=== PATIENT | male | born 1955 | race Caucasian/White ===

== ENCOUNTER → 2019-05-13 13:45 | Outpatient (BNVA) | payer MEDICAID, SELFPAY | PROVIDERS: Visit Provider Nurse Practitioner Psychiatric/Mental Health | DX: F25.1 Schizoaffective disorder, depressive type (principal); F41.1 Generalized anxiety disorder; F10.21 Alcohol dependence, in remission; F01.50 Vascular dementia, unspecified severity, without behavioral disturbance, psychotic disturbance, mood disturbance, and anxiety; F17.210 Nicotine dependence, cigarettes, uncomplicated | CPT/HCPCS: 99214; 99215 ==

== ENCOUNTER → 2019-05-17 14:41 | Outpatient (BNVA) | payer MEDICAID, SELFPAY | PROVIDERS: Visit Provider Counselor Professional | DX: F43.12 Post-traumatic stress disorder, chronic (principal); F17.210 Nicotine dependence, cigarettes, uncomplicated; F02.80 Dementia in other diseases classified elsewhere, unspecified severity, without behavioral disturbance, psychotic disturbance, mood disturbance, and anxiety; F10.21 Alcohol dependence, in remission | CPT/HCPCS: 90834 ==

== ENCOUNTER → 2019-05-24 13:12 | Outpatient (BNVA) | payer MEDICAID, SELFPAY | PROVIDERS: Visit Provider Nurse Practitioner Psychiatric/Mental Health | DX: F25.1 Schizoaffective disorder, depressive type (principal); F41.1 Generalized anxiety disorder; F43.12 Post-traumatic stress disorder, chronic; F10.21 Alcohol dependence, in remission; F17.210 Nicotine dependence, cigarettes, uncomplicated; F02.80 Dementia in other diseases classified elsewhere, unspecified severity, without behavioral disturbance, psychotic disturbance, mood disturbance, and anxiety; G30.9 Alzheimer's disease, unspecified | CPT/HCPCS: 99214 ==

== ENCOUNTER → 2019-05-30 08:46 | Outpatient (BNVA) | payer MEDICAID, SELFPAY | PROVIDERS: Visit Provider Counselor Professional | DX: F43.12 Post-traumatic stress disorder, chronic (principal); F02.80 Dementia in other diseases classified elsewhere, unspecified severity, without behavioral disturbance, psychotic disturbance, mood disturbance, and anxiety; F10.21 Alcohol dependence, in remission | CPT/HCPCS: 90834 ==

== ENCOUNTER → 2019-06-09 15:08 | Outpatient (BNVA) | payer MEDICAID, SELFPAY | PROVIDERS: PCP Nurse Practitioner Family; Visit Provider Nurse Practitioner Psychiatric/Mental Health | DX: F25.1 Schizoaffective disorder, depressive type (principal); F41.1 Generalized anxiety disorder; F01.50 Vascular dementia, unspecified severity, without behavioral disturbance, psychotic disturbance, mood disturbance, and anxiety; F10.21 Alcohol dependence, in remission; F43.12 Post-traumatic stress disorder, chronic; F17.210 Nicotine dependence, cigarettes, uncomplicated | CPT/HCPCS: 99214 ==

== ENCOUNTER → 2019-06-13 12:45 | Outpatient (BNVA) | payer MEDICAID, SELFPAY | PROVIDERS: PCP Nurse Practitioner Family; Visit Provider Counselor Professional | DX: F43.12 Post-traumatic stress disorder, chronic (principal); F17.210 Nicotine dependence, cigarettes, uncomplicated; F10.21 Alcohol dependence, in remission; F41.1 Generalized anxiety disorder; F25.1 Schizoaffective disorder, depressive type | CPT/HCPCS: 90834 ==

== ENCOUNTER → 2019-07-07 10:18 | Outpatient (BNVA) | payer MEDICAID, SELFPAY | PROVIDERS: PCP Nurse Practitioner Family; Visit Provider Nurse Practitioner Psychiatric/Mental Health | DX: F25.1 Schizoaffective disorder, depressive type (principal); F41.1 Generalized anxiety disorder; F01.50 Vascular dementia, unspecified severity, without behavioral disturbance, psychotic disturbance, mood disturbance, and anxiety; F10.21 Alcohol dependence, in remission; F43.12 Post-traumatic stress disorder, chronic; F17.210 Nicotine dependence, cigarettes, uncomplicated | CPT/HCPCS: 99214 ==

== ENCOUNTER → 2019-07-15 11:00 | Outpatient (BNVA) | payer MEDICAID, SELFPAY | PROVIDERS: PCP Nurse Practitioner Family; Visit Provider Counselor Professional | DX: F43.12 Post-traumatic stress disorder, chronic (principal); F17.210 Nicotine dependence, cigarettes, uncomplicated; F10.21 Alcohol dependence, in remission; F41.1 Generalized anxiety disorder; F25.1 Schizoaffective disorder, depressive type | CPT/HCPCS: 90834 ==

== ENCOUNTER → 2019-08-18 07:36 | Outpatient (BNVA) | payer MEDICAID, SELFPAY | PROVIDERS: PCP Nurse Practitioner Family; Visit Provider Nurse Practitioner Psychiatric/Mental Health | DX: F25.1 Schizoaffective disorder, depressive type (principal); F41.1 Generalized anxiety disorder; F01.50 Vascular dementia, unspecified severity, without behavioral disturbance, psychotic disturbance, mood disturbance, and anxiety; F10.21 Alcohol dependence, in remission; F43.12 Post-traumatic stress disorder, chronic; F17.210 Nicotine dependence, cigarettes, uncomplicated | CPT/HCPCS: 99214 ==

== ENCOUNTER → 2019-09-15 07:29 | Outpatient (BNVA) | payer MEDICAID, SELFPAY | PROVIDERS: PCP Nurse Practitioner Family; Visit Provider Nurse Practitioner Psychiatric/Mental Health | DX: F25.1 Schizoaffective disorder, depressive type (principal); F41.1 Generalized anxiety disorder; F01.50 Vascular dementia, unspecified severity, without behavioral disturbance, psychotic disturbance, mood disturbance, and anxiety; F10.21 Alcohol dependence, in remission; F43.12 Post-traumatic stress disorder, chronic; F17.210 Nicotine dependence, cigarettes, uncomplicated | CPT/HCPCS: 99214 ==

== ENCOUNTER → 2019-10-12 07:31 | Outpatient (BNVA) | payer MEDICAID, SELFPAY | PROVIDERS: PCP Nurse Practitioner Family; Visit Provider Nurse Practitioner Psychiatric/Mental Health | DX: F25.1 Schizoaffective disorder, depressive type (principal); F41.1 Generalized anxiety disorder; F01.50 Vascular dementia, unspecified severity, without behavioral disturbance, psychotic disturbance, mood disturbance, and anxiety; F10.21 Alcohol dependence, in remission; F43.12 Post-traumatic stress disorder, chronic; F17.210 Nicotine dependence, cigarettes, uncomplicated | CPT/HCPCS: 99214 ==

== ENCOUNTER → 2019-11-01 14:47 | Outpatient (BNVA) | payer MEDICAID, SELFPAY | PROVIDERS: PCP Nurse Practitioner Family; Visit Provider Counselor Mental Health | DX: F01.50 Vascular dementia, unspecified severity, without behavioral disturbance, psychotic disturbance, mood disturbance, and anxiety (principal); F41.1 Generalized anxiety disorder; F25.1 Schizoaffective disorder, depressive type | CPT/HCPCS: 90834 ==

== ENCOUNTER → 2019-11-09 08:36 | Outpatient (BNVA) | payer MEDICAID, SELFPAY | PROVIDERS: PCP Nurse Practitioner Family; Visit Provider Counselor Mental Health | DX: F43.12 Post-traumatic stress disorder, chronic (principal); F41.1 Generalized anxiety disorder; F25.1 Schizoaffective disorder, depressive type | CPT/HCPCS: 90832 ==

== ENCOUNTER → 2019-11-10 07:52 | Outpatient (BNVA) | payer MEDICAID, SELFPAY | PROVIDERS: PCP Nurse Practitioner Family; Visit Provider Nurse Practitioner Psychiatric/Mental Health | DX: F25.1 Schizoaffective disorder, depressive type (principal); F41.1 Generalized anxiety disorder; F01.50 Vascular dementia, unspecified severity, without behavioral disturbance, psychotic disturbance, mood disturbance, and anxiety; F10.21 Alcohol dependence, in remission; F43.12 Post-traumatic stress disorder, chronic; F17.210 Nicotine dependence, cigarettes, uncomplicated | CPT/HCPCS: 99214 ==

== ENCOUNTER → 2019-12-19 10:24 | Outpatient (BNVA) | payer MEDICAID, SELFPAY | PROVIDERS: PCP Nurse Practitioner Family; Visit Provider Counselor Mental Health | DX: F43.12 Post-traumatic stress disorder, chronic (principal); F41.1 Generalized anxiety disorder; F25.1 Schizoaffective disorder, depressive type | CPT/HCPCS: 90832 ==

== ENCOUNTER → 2020-01-03 09:51 | Outpatient (BNVA) | payer MEDICAID, SELFPAY | PROVIDERS: PCP Nurse Practitioner Family; Visit Provider Counselor Mental Health | DX: F41.1 Generalized anxiety disorder (principal); F25.1 Schizoaffective disorder, depressive type; F10.21 Alcohol dependence, in remission; F01.50 Vascular dementia, unspecified severity, without behavioral disturbance, psychotic disturbance, mood disturbance, and anxiety; F43.12 Post-traumatic stress disorder, chronic | CPT/HCPCS: 90832 ==

== ENCOUNTER → 2020-01-10 08:39 | Outpatient (BNVA) | payer MEDICAID, SELFPAY | PROVIDERS: PCP Nurse Practitioner Family; Visit Provider Nurse Practitioner Psychiatric/Mental Health | DX: F43.12 Post-traumatic stress disorder, chronic (principal); F01.50 Vascular dementia, unspecified severity, without behavioral disturbance, psychotic disturbance, mood disturbance, and anxiety; F41.1 Generalized anxiety disorder; F17.210 Nicotine dependence, cigarettes, uncomplicated; F10.21 Alcohol dependence, in remission; F25.1 Schizoaffective disorder, depressive type | CPT/HCPCS: 99214 ==

== ENCOUNTER → 2020-01-12 12:50 | Outpatient (BNVA) | payer MEDICAID, SELFPAY | PROVIDERS: PCP Nurse Practitioner Family; Visit Provider Counselor Mental Health | DX: F41.1 Generalized anxiety disorder (principal); F25.1 Schizoaffective disorder, depressive type; F43.11 Post-traumatic stress disorder, acute | CPT/HCPCS: 90832; 80053; 80061; 83036; 85025 ==

== ENCOUNTER → 2020-02-07 07:53 | Outpatient (BNVA) | payer MEDICARE, MEDICAID, SELFPAY | PROVIDERS: PCP Nurse Practitioner Family; Visit Provider Nurse Practitioner Psychiatric/Mental Health | DX: F41.1 Generalized anxiety disorder (principal); F25.1 Schizoaffective disorder, depressive type; F17.210 Nicotine dependence, cigarettes, uncomplicated; G47.00 Insomnia, unspecified; F01.50 Vascular dementia, unspecified severity, without behavioral disturbance, psychotic disturbance, mood disturbance, and anxiety; F43.12 Post-traumatic stress disorder, chronic; F10.21 Alcohol dependence, in remission | CPT/HCPCS: 99214 ==

== ENCOUNTER 2020-02-16 10:48 | Outpatient (CLI) | payer MEDICARE, MEDICAID, SELFPAY ==
--- NOTE | 2020-02-16 10:58 | CT_ITS ---
WS: [id number] LDCT LUNG CANCER SCREENING TECHNIQUE: Noncontrast CT of the chest with coronal and sagittal reformatted images. CLINICAL INFORMATION: HX OF TOBACCO USE/NICOTINE DEPENDENCE COMPARISON: CT chest 4 2017 DLP: 57.73 mGy.cm DIvol: 1.[address] scans at [facility] use at least one of these dose optimization techniques: automat ed exposure control; mA and/or kV adjustment per patient size (includes targeted exams where dose is matched to clinical indication); or iterative reconstruction. FINDINGS: ESOPHAGEAL HIATAL HERNIA WITH DILATED THORACIC ESOPHAGUS WITH AIR-FLUID LEVELS. SPASM OR STRICTURE AT THE GE JUNCTION. RECOMMEND FURTHER EVALUATION WITH ENDOSCOPY. 4 mm noncalcified nodule right middle lobe laterally. No acute pulmonary infiltrates. No focal pneumo kulwant. No mediastinal or hilar lymphadenopathy. No axillary lymphadenopathy. Adrenal glands are normal. CT/CT lung screening [id number] IMPRESSION: LUNG-RADS: 2-Benign Appearance or Behavior FOLLOW UP: 12 Month: Continue annual screening with LDCT
== END 2020-02-16 10:49 | disposition home or self-care (01) ==
DX: Z12.2 Encounter for screening for malignant neoplasm of respiratory organs (principal); F17.210 Nicotine dependence, cigarettes, uncomplicated; R91.1 Solitary pulmonary nodule
CPT/HCPCS: G0297

== ENCOUNTER → 2020-02-17 14:04 | Outpatient (BNVA) | payer MEDICARE, MEDICAID, SELFPAY | PROVIDERS: Visit Provider Surgery | DX: Z11.59 Encounter for screening for other viral diseases (principal); K22.0 Achalasia of cardia | CPT/HCPCS: 87635 ==

== ENCOUNTER 2020-02-20 08:22 | Outpatient (CLI) | payer MEDICARE, MEDICAID, SELFPAY ==
--- NOTE | 2020-02-20 08:30 | FL_ITS ---
WS: [id number] Limited upper GI examination, Gastrografin. HISTORY: Dysphagia. Fluoroscopy time: 1.5 minutes. Only 2 small swallows of Gastrografin were given for this examination. There is marked dilatation of the esophagus with food products and debris within the entire esophagus. There is marked narrowing of the distal esophagus. Probably due to marked achalasia. After 10 minutes a small amount of Gastrogra fin is noted extending through the GE junction into the stomach. There still majority of the Gastrogr afin is within the stomach. There are few tertiary contractions. FL/FL upper GI gastrografin [id number] IMPRESSION: Severe high grade stenosis which is likely achalasia involving the distal esoph dora. After 10 minutes there is very minimal Gastrografin distending the stomac h. Majority of the Gastrografin is still within the esophagus. Similar but prog ression of high-grade stenosis at the GE junction since 07/24/2017.
[2020-02-20] MEDS: diatrizoate meglumine 120 mL Sol PO (09:18)
== END 2020-02-20 08:23 | disposition home or self-care (01) ==
LOC: RAD 08:28
PROVIDERS: PCP Family Medicine; Visit Provider Surgery
DX: R13.10 Dysphagia, unspecified (principal); K22.2 Esophageal obstruction
CPT/HCPCS: 74240

== ENCOUNTER 2020-02-21 08:49 | Inpatient (IN) | payer MEDICARE, MEDICAID, SELFPAY ==
[2020-02-20 13:00] VITALS: BMI 27.1
[2020-02-21] VITALS (20 sets, daily range): BP systolic 136–187; BP diastolic 63–95; PULSE 73–93; RESP 14–22; TEMP 36.3–36.9; O2SAT 90–98
--- NOTE | 2020-02-21 06:28 | XR_ITS ---
WS: [id number] Exam: XR chest 1V portable [id number] Date/Time of Exam: 02/21/2020 6:28 AM Reason For Exam: post upper gi study to check residual contrast in the esopha Findings: Comparison 07/23/2017. Lungs are clear and fully inflated. Normal cardiomediastinal structures and bony elements. No pleural effusions. Several old left rib fractures. No residual radiographic contrast identified in the regio n of the esophagus. XR/XR chest 1V portable [id number] IMPRESSION: 1. No acute cardiopulmonary finding.
--- NOTE | 2020-02-21 08:05 | P.ANESASSM_ITS ---
Pre-Anesthetic Assessment Pre-Anesthetic Assessment: Height/Weight: Height 1.83 m Weight 90.718 kg Temp Pulse Resp BP Pulse Ox 97.3 F L 83 18 136/77 95 02/21/20 07:46 02/21/20 07:46 02/21/20 07:46 02/21/20 07:46 02/21/20 07:46 Preop Diagnosis: Achalasia of the cardia Proposed Procedure: Operation Date: 02/21/20 07:00 Proposed Procedures p Laparoscopic Esophageal Heller Myotomy w/ AGAPITO Fundoplication 76535 25523 K22.0(Not Applicable) - Aneesh Renteria MD s EGD(Not Applicable) - Aneesh Renteria MD s Possible Gastric Tube Insertion(Not Applicable) - Aneesh Renteria MD Operation Date: 02/21/20 08:50 Proposed Procedures p Laparoscopic Esophageal Heller Myotomy w/ AGAPITO Fundoplication 50712 93835 K22.0(Not Applicable) - Aneesh Renteria MD s Possible Gastric Tube Insertion(Not Applicable) - Aneesh Renteria MD s EGD 97396(Not Applicable) - Aneesh Renteria MD Familial anesthetic complications: None Was Beta Malik taken within 24 hours: N/A Last intake: Intake Last Liquid Date 02/20/20 Last Liquid Time 18:00 Last Solid Date 02/20/20 Last Solid Time 18:00 Social: Social History: Tobacco and No alcohol Comment: previous ETOH Exam: Pre-Anes Outpt Exam: alert, oriented x 3, clear to auscultation bilaterally and regular rate & rhythm Airway: Cervical ROM: WNL MP: 2 Dentition: Other (multiple missing teeth) GI: Comments: Patient states he vomited yesterday after his gastrogaffin study and does not feel anything in his esophagus currently Neuropsych: Neuropsych: Dementia Comments: alzheimer's and shizoaffective d/o Anesthetic Plan: ASA status: 2 Other: RSI for aspiration risk Risk of > 500 ml blood loss (7ml/kg in children): No PFSH Anesthesia PFSH: Medical History (Updated 02/07/20 @ 14:46 by Krystal Vazquez, [facility]) Alcohol use disorder, moderate, in early remission Chronic post-traumatic stress disorder Cigarette nicotine dependence Generalized anxiety disorder Insomnia Major neurocognitive disorder due to probable Alzheimer's disease, without behavioral disturbance Schizoaffective disorder, depressive type without good prognostic features Surgical History History of esophagogastroduodenoscopy (EGD) (~2018) BOTOX INJECTION Family History Denies family history of Anesthesia complication Bleeding disorder Social History Smoking and tobacco status: current every day smoker cigarettes Packs smoked per day: 1 Years cigarettes smoked: 50 Quit status (tobacco): considering quitting Second hand smoke exposure: No Data Anesthesia Cardiac Studies: No Data to Display
[2020-02-21] MEDS: heparin 5,000 unit/mL INJ 1 mL 3000 UNIT SUBCUT (08:37)
[2020-02-21] MEDS: ondansetron 2 mg/ML SDV 2 mL 4 MG IVP (08:37)
[2020-02-21] MEDS: scopolamine 1.5 Patch 1 PATCH TRANSDERMA (08:38)
[2020-02-21] MEDS: pantoprazole 40 mg SDV IVP (08:39)
[2020-02-21] MEDS: sodium chloride 0.9% 1,000 ML 30 ML IV (08:39)
--- NOTE | 2020-02-21 09:02 | P.HP_ITS ---
Same Day Surgery H&P Indication for Procedure/HPI DATE OF PROCEDURE: February 21, 2020 CHIEF COMPLAINT/INDICATIONFOR SURGICAL PROCEDURE: Difficulty in swallowing PREOP DIAGNOSIS: Achalasia of the cardia PLANNED PROCEDRUE: Operation Date: 02/21/20 07:00 Proposed Procedures p Laparoscopic Esophageal Heller Myotomy w/ ZACHARIAH Fundoplication 87386 54324 K22. 0(Not Applicable) - Aneesh Renteria MD s EGD(Not Applicable) - Aneesh Renteria MD s Possible Gastric Tube Insertion(Not Applicable) - Aneesh Renteria MD Operation Date: 02/21/20 08:50 Proposed Procedures p Laparoscopic Esophageal Heller Myotomy w/ ZACHARIAH Fundoplication 25688 77503 K22.0(Not Applicable) - Aneesh Renteria MD s Possible Gastric Tube Insertion(Not Applicable) - Aneesh Renteria MD s EGD 73190(Not Applicable) - Aneesh Renteria MD This is a pleasant 64 years old gentleman had chronic difficulty in swallowing and was proved to have achalasia of the cardia after different studies including EGD, manometry and upper GI studies, patient was counseled on different occasions about different therapeutic options, patient did have 1 injection of botulinum toxin at outside facility more than a year ago and he had relief but he continued to have symptoms and he finally decided to proceed with surgery. Patient comes today and an upper GI study was done yesterday to rule out any potential distal esophageal growth or changes in comparison to previous studies and that showed: Only 2 small swallows of Gastrografin were given for this examination. There is marked dilatation of the esophagus with food products and debris within the entire esophagus. There is marked narrowing of the distal esophagus. Probably due to marked achalasia. After 10 minutes a small amount of Gastrografin is noted extending through the GE junction into the stomach. There still majority of the Gastrografin is within the stomach. There are few tertiary contractions. FL/FL upper GI gastrografin [id number] IMPRESSION: Severe high grade stenosis which is likely achalasia involving the distal esophagus. After 10 minutes there is very minimal Gastrografin distending the stomach. Majority of the Gastrografin is still within the esophagus. Similar but progression of high-grade stenosis at the GE junction since 07/24/2017. ROS All systems have been reviewed negative except as per the above or per problem list Medications/Allergies* Home Medications Medication Instructions Recorded Confirmed Type multivitamin 1 tab PO QAM 05/13/19 02/20/20 History Allergies/Adverse Reactions Allergy/AdvReac Type Severity Reaction Status Date / Time No Known Allergies Allergy Verified 02/21/20 09:04 Current Medications: Generic Name Dose Route Start Last Admin Trade Name Freq PRN Reason Stop Dose Admin Sodium Chloride 1,000 mls @ 30 mls/hr 02/21/20 07:45 02/21/20 08:39 Sodium Chloride 0.9% IV 02/22/20 07:44 30 mls/hr .Q24H JAGDISH Administration Ondansetron HCl 4 mg 02/21/20 07:33 02/21/20 08:37 Zofran IVP 4 mg Q5M PRN Administration NAUSEA AND VOMITING Pertinent History/Comorbid Conditions* Medical History (Updated 02/07/20 @ 14:46 by Krystal Vazqeuz, [facility]) Alcohol use disorder, moderate, in early remission Chronic post-traumatic stress disorder Cigarette nicotine dependence Generalized anxiety disorder Insomnia Major neurocognitive disorder due to probable Alzheimer's disease, without behavioral disturbance Schizoaffective disorder, depressive type without good prognostic features Surgical History (Updated 06/06/19 @ 10:18 by Aneesh Renteria MD) History of esophagogastroduodenoscopy (EGD) (~2018) BOTOX INJECTION Family History (Updated 06/06/19 @ 09:30 by Love Carmona RN) Denies family history of Anesthesia complication Bleeding disorder Social History Smoking and tobacco status: current every day smoker cigarettes Packs smoked per day: 1 Years cigarettes smoked: 50 Quit status (tobacco): considering quitting Second hand smoke exposure: No Pertinent Exam Findings alert, oriented x 3, clear to auscultation bilaterally, regular rate & rhythm and procedure specific exam findings (Abdominal examination nontender nondistended soft) Recommendations Surgery/Procedure today (Laparoscopic Heller myotomy with Zachariah fundoplication possible open with possible gastrostomy tube placement) Coding Level of Care Code Acute Director Of Mechanical Engineering for Sanjeev Pena
--- NOTE | 2020-02-21 11:50 | SUR.OPER ---
1025 - attempted to notify of surgery start. unable to reach her on her cell phone at this time.
--- NOTE | 2020-02-21 11:52 | SUR.OPER ---
Amrita updated on surgery progress and pt status via her cell phone
--- NOTE | 2020-02-21 13:34 | SUR.OPER ---
Family Notified Of Patient's Status Via Phone.
--- NOTE | 2020-02-21 13:51 | P.OP_ITS ---
Operative Report Date of procedure: February 21, 2020 Pre-op Diagnosis: Achalasia of the cardia Post-op Findings: Scarred tissues distal part of the esophagus and proximal stomach Procedure Done: Laparoscopic Heller myotomy and Zachariah fundoplication with intraoperative esophagogastroscopy Implants: 15 Burkinan round Hank drain Surgeon: Aneesh Renteria Cardiograph Operator: Surgical Mayra Hurley Jesse and Britney Anesthesia: General Estimated blood loss (mL): 20 IV fluids (mL): 1,700 Urine output (mL): 550 Condition: stable Disposition: observation Brief History: This is a pleasant 64 years old gentleman with history of achalasia,patient had previous work-ups and showed his potential candidacy for laparoscopic Heller myotomy with Zachariah fundoplication. I did discuss in length and in depth with the patient and his spouse about different options for treatment and he decided to proceed with surgery. U nderstanding the potential indications, risks, benefits and alternatives. Rationale was discussed with the patient and all questions and concerns have been addressed to patient's satisfaction as well as his spouse. Informed consent per chart Procedure: Patient was identified in holding area,appropriate pharmacologic DVT prophylaxis was given, patient was then taken to the operating room where the patient was placed in supine position, intubated by anesthesia prophylactic antibiotics were given per protocol,Time-out was done verifying the patient's name/date of /planned procedure and destination after the procedure, all were in agreement. SCDs confirmed to be functioning, preoperative antibiotics administered per protocol, and beta steven protocol was confirmed patient was placed in a low lithotomy position, both arms were tucked to the sides.and all pressure points were padded, a Macario catheter was placed by the circulating nurse that revealed clear urine. The patient was appropriately secured to the operating table, and I asked anesthesia to swing the table [id number] in different positions that the patient is appropriately secured to the OR table which it was the case. Prep and drape of the abdomen was done under the usual sterile technique, started by 1.2 cm transverse incision with 15 blade knife, 15 cm below the xiphoid and 3 cm to the left of the midline, followed by that a 12 mm optical trocar was used under direct vision and placed in the peritoneal cavity without difficulty. The peritoneal cavity was insufflated with CO2 gas up to 15 mmHg, followed by that an angled scope 10 mm was inserted in the abdominal cavity, the abdomen was surveyed there was no evidence of blood or fluid or other evidence of intra-abdominal injury Following that two 5 mm ports were placed one at 10 cm from the xiphoid process under the left subcostal region and the other one was placed at the left flank A 12 mm port was placed in the subxiphoid region towards the right upper subcostal region. At this point to insert an additional 5 mm trocar 15 centimeter to the right of the xiphoid process at the upper abdomen, and liver retractor was placed under direct visualization to lift the liver up and helped greatly for appropriate visualization of the hiatus. Patient was placed in steep reverse T Munoz and I st ood between the patient's legs. The hepatogastric ligament was left intact.I started by freeing esophageal fat pad, harmonic scalpel was used for dissection, dissection of the phrenoesophageal ligament was limited to the space anterior to the esophagus.The mediastinum was entered bluntly by gentle medial traction upon the lateral aspects of the hiatus anterior to the esophagus. The anterior vagus nerve was identified, freed from the surface of the esophagus and thus mobilized out of harms way.Approximately 6 cm of the esophagus was easily visualized. At this point I decided to take down the short gastrics to facilitate with the future The anterior fibers of the esophagus were then scored in a longitudinal fashion with the harmonic scalpel/hook cautery are used sparingly to avoid inadvertent mucosal perforation.Noticed to have excessive scarring at the distal esophagus and proximal stomach and the myotomy performed, exposing intact submucosa. Dissection was carried out approximately 2 cm distal to the gastroesophageal junction. There was 2 inadvertent proximal gastrotomies that were repaired immediate using 2-0 silk [id number] sutures. At that point I did scrub out and the EGD was inserted under direct visualization suction irrigation was obtained and the mucosa appeared to be intact and there was no sign of perforation with insufflation of gas in the form of CO2. The lower esophageal sphincter opened easily upon gentle insufflation, confirming an adequate myotomy.There was no evidence of leak.The endoscope was withdrawn. At that point I scrubbed back in and the following sutures were applied: A 2-0 Ethibond intracorporeal sutures are placed.On the left side, a suture is placed between the fundus, the apex of the left kathryn, and the superior cut edge of the muscularis to the left of the esophagus. A second suture is placed 2 cm inferior caudad to the first suture approximating the left side of the fundus and the left side of the myotomy. The third suture is placed between the fundus and the superior cephalad cut edge of the muscularis to the right of the esophagus and the apex of the right kathryn. Finally the fourth suture is placed between the right side of the fundus and the inferior caudad right side of the myotomy to complete an anterior partial fundoplication and additional suture was added between the fundus of the stomach and the right kathryn of the diaphragm. In this way the entire exposed aspect of the mucosa is covered by fundus to prevent delayed development of a distal esophageal diverticulum. There was a serosal tear appreciated at the left side of the fundus at the posterior aspect that I elected to place a [id number] 2-0 silk suture x2 I elected to place a 15 Burkinan round Hank drain via the far left 5 mm trocar under direct visualization and was placed at the Zachariah fundoplication and underneath the left lobe of the liver, secured to the skin with 2-0 nylon. After adequate hemostasis the liver retractor was taken out under direct visualization, final laparoscopic survey was done showing no injuries to intra- abdominal structures, the 12 mm trocar sites were closed by Andrés Friedman under direct visualization using #1. Sutures,following that a TAP Block was done using Exparel then all ports were removed and both 12 mm ports.The rest of the stab incisions were closed by skin navin, followed by Band-Aids and patient tolerated the procedure well. Bilateral TAP (transversus abdominous plain peripheral nerve block )block using Exparel 20 mL Exparel 40 ml Normal saline 20 ml bupivacaine 0.25% 30 mL on each side injected 20 mL injected the port sites The count of instruments,needles and sponges was completed at the end of the procedure. Macario catheter was kept at the end of the procedure I was present for the whole entire procedure,patient was extubated and was taken to the recovery room in stable condition.
--- NOTE | 2020-02-21 14:08 | SUR.PHASEI ---
0248 PATIENT TO PACU FROM OR. INCISIONS TO ABDOMEN, COLLIN DRAIN IN PLACE. PATIENT NOTED TO BE RESTING, SPO2 97% ON SIMPLE MASK AT 8L.
--- NOTE | 2020-02-21 14:40 | PM.PACU ---
PACU note Post-Anesthesia Exam: awake and vital signs stable Disposition: admitted
--- NOTE | 2020-02-21 15:00 | SUR.PHASEI ---
0849 PATIENT TO MED SURG. INCISIONS TO ABDOMEN, CDI WITH DRAIN IN PLACE. DRAIN EMPTIED, SEE OUTPUT. PATIENT DENIES PAIN.
[2020-02-21] MEDS: morphine 4 mg/mL SDV 1 mL IVP (23:20)
[2020-02-21] MEDS: sodium chloride 0.9% 1,000 ML 125 ML IV (23:20)
[2020-02-22] VITALS (9 sets, daily range): BP systolic 140–156; BP diastolic 64–71; PULSE 55–74; RESP 18–20; TEMP 36.6–37.2; O2SAT 94–95
[2020-02-22 02:48] LABS: Hematocrit 45.1 % (42.0-52.0); Hemoglobin 15.1 g/dL (11.7-16.6)
[2020-02-22 03:21] LABS: Blood Urea Nitrogen 7 mg/dL (8-23); Calcium 8.7 mg/dL (8.5-10.5); Carbon Dioxide 22 mmol/L (22-29); Chloride 105 mmol/L (98-107); Creatinine Clr Calc Pharmacy 109.3123; Glomerular Filtration Rate 97.3 mL/min (90-130); Glucose 131 mg/dL (65-115); Osmolality Calculated 286 mOsm/kg (285-295); Sodium 138 mmol/L (136-145)
[2020-02-22] MEDS: heparin 5,000 unit/mL INJ 1 mL 5000 UNIT SUBCUT (05:02)
--- NOTE | 2020-02-22 05:27 | P.PN_ITS ---
Subjective Subjective: Interval history: Patient overnight had 100 mL of serosanguineous output per drain. Complains of some pain but overall doing well. Good urine output. Otherwise no acute events overnight Vitals/I&O/Wt Last Vital Signs Temp 97.9 F 02/22/20 04:00 Pulse 74 02/22/20 04:00 Resp 20 H 02/22/20 04:00 BP 147/67 02/22/20 04:00 Pulse Ox 95 02/22/20 04:00 02/21/20 02/21/20 02/22/20 14:59 22:59 06:59 Intake Total 1850 / 1850 50 / 1900 Output Total 1265 / 1265 3300 / 4565 635 / 5200 Balance 585 / 585 -3250 / -2665 -635 / -3300 Weight last 48 hrs Weight 200 lb Weight 200 lb Physical Exam Narrative: EXAM NARRATIVE: Patient is conscious alert oriented X3 BMI 27 Head and neck examination PERRLA no masses no cervical lymphadenopathy no jaundice Cardiac examination audible S1-S2 no murmurs no gallops no arrhythmias Chest is clear bilateral,abscence of Rhonchi or wheezes,no surgical emphysema Abdomen nontender step mildly at the incision sites nondistended soft no organomegaly guarding or rigidity/no signs of peritonitis Left upper quadrant drain in place with serosanguineous output Extremities no cyanosis no clubbing no edema Urinary Catheter Management^: Macario: Cath Placed During This Visit: yes Reason for Continuing Indwelling Catheter: Required Immobilization for Trauma or Surgery or Anesthesia Urinary Catheter Date of Insertion: 02/21/20 Data : 02/22/20 02:00 02/22/20 02:00 A&P Assessment and plan (1) Achalasia of cardia: 5:25 AM status post laparoscopic Heller myotomy and Zachariah fundoplication 02/21/2020 Ambulation Incentive spirometer every hour DC Macario catheter Resume pharmacologic DVT prophylaxis We will follow on upper GI study Wean oxygen to room air Assurance and education All questions have been answered and all concerns have been addressed to keila reaves's satisfaction. 10:17 AM Upper GI study was done and showed smoother flow of contrast in comparison to the preoperative study. Addendum report: Prior Gastrografin upper GI from 02/20/2020 is reviewed and compared to the the exam performed on 02/22/2020. There is some contrast spillage into the stomach on today's upper GI exam as compared to almost complete obstruction of the GE junction on the prior study. Addendum Dictated By: Joce Oliva DO Addendum Signed By: Gautamigned Date/Time:02/22/20 1001 Addendum Cosigned By: ADDENDUM FL/FL upper GI gastrografin [id number] IMPRESSION: 1. GE junction obstruction shows improvement on today's study as compared to the prior exam. These results were discussed by phone with Dr. Renteria, the attending surgeon at 9:30 AM 02/22/2020. Addendum Dictated By: Joce Oliva DO Addendum Signed By: Joce Oliva, OSCARigned Date/Time:02/22/20 1005 Addendum Cosigned By: WS: [id number] 02/22/2020 9:15 AM Exam: [place] upper GI gastrografin [id number] Date/Time of Exam: 02/22/2020 8:00 AM Reason For Exam: Status post laparoscopic Heller myotomy and Zachariah fundoplication Fluoroscopy Time: 2.9 Gastrografin upper GI is performed. Swallowing function at the level of the oropharynx was normal. The esophagus is dilated with retained debris. There is spasm of the esophagus with significant smooth stricture at the GE junction. A small amount of barium spills into the stomach and courses through the small bowel without obstruction. There is significant retention of Gastrografin in the esophagus. A gastrotomy tube is noted in the stomach. Pneumoperitoneum noted secondary to recent abdominal surgery. FL/FL upper GI gastrografin [id number] IMPRESSION: 1. Relatively high-grade smooth stricture at the GE junction. Some contrast spills into the stomach and flows through the small bowel without obstruction. 2. Significant amount retained contrast in the esophagus. The esophagus is dilated with tertiary spasm. 3. No abnormal extravasation of contrast outside the confines of the GI tract. We will start the patient on clear liquid diet slowly Status: Resolved [facility] Medical Necessity Statement*: Observation status to follow on upper GI study and to make sure that the patient is tolerating p.o. intake. Time Spent in Patient Care: (>than 50% of time spent in counselling and/or direct pt care on unit) . Coding Level of Care Code Acute Coagulating Operator for Sanjeev Pena Diagnoses Achalasia of cardia K22.0
[2020-02-22] MEDS: morphine 4 mg/mL SDV 1 mL IVP ×2 (06:02→12:51)
[2020-02-22] MEDS: sodium chloride 0.9% 1,000 ML 125 ML IV ×2 (07:59→12:52)
--- NOTE | 2020-02-22 08:00 | FL_ITS ---
WS: [id number] 02/22/2020 9:15 AM Exam: [place] upper GI gastrografin [id number] Date/Time of Exam: 02/22/2020 8:00 AM Reason For Exam: Status post laparoscopic Heller myotomy and Zachariah fundoplication Fluoroscopy Time: 2.9 Gastrografin upper GI is performed. Swallowing function at the level of the oropharynx was normal. The esophagus is dilated with retained debris. There is spasm of the esophagus with significant smooth stricture at the GE junction. A smal l amount of barium spills into the stomach and courses through the small bowel without obstruction. T here is significant retention of Gastrografin in the esophagus. A gastrotomy tube is noted in the sto mach. Pneumoperitoneum noted secondary to recent abdominal surgery. FL/FL upper GI gastrografin [id number] IMPRESSION: 1. Relatively high-grade smooth stricture at the GE junction. Some contrast spi lls into the stomach and flows through the small bowel without obstruction. 2. Significant amount retained contrast in the esophagus. The esophagus is dila wm with tertiary spasm. 3. No abnormal extravasation of contrast outside the confines of the GI tract.
[2020-02-22] MEDS: diatrizoate meglumine 120 mL Sol PO (09:07)
--- NOTE | 2020-02-22 09:17 | PC.NURSE ---
patient states he is not passing gas yet.
--- NOTE | 2020-02-22 10:15 | PC.NURSE ---
Rcvd call from Dr Renteria stating he is ordering a clear liquid diet.
[2020-02-22] MEDS: HYDROcodone-APAP 7.5-325 mg/15 mL UDC PO (16:18)
--- NOTE | 2020-02-22 16:39 | PC.NURSE ---
patient ambulated by self 650 ft on floor
--- NOTE | 2020-02-22 16:49 | P.SS_ITS ---
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 Further work-up and evaluation showed that patient continues to have difficulty in swallowing and he was counseled for different options for treatment including laparoscopic Heller myotomy and Zachariah fundoplication. Review of Systems General: Reports: 10 or more systems reviewed and unremarkable except in HPI and below Home Meds/Allergies Home Medications and Allergies Home Medications Medication Instructions Recorded Confirmed Type multivitamin 1 tab PO QAM 05/13/19 02/21/20 History Allergies Allergy/AdvReac Type Severity Reaction Status Date / Time No Known Allergies Allergy Verified 02/22/20 16:51 PFSH Acute PFSH: Medical History (Updated 02/22/20 @ 16:51 by Aneesh Renteria MD) Alcohol use disorder, moderate, in early remission Chronic post-traumatic stress disorder Cigarette nicotine dependence Generalized anxiety disorder Insomnia Major neurocognitive disorder due to probable Alzheimer's disease, without behavioral disturbance Schizoaffective disorder, depressive type without good prognostic features Surgical History History of esophagogastroduodenoscopy (EGD) (~2018) BOTOX INJECTION Family History Denies family history of Anesthesia complication Bleeding disorder Social History Smoking and tobacco status: current every day smoker cigarettes Packs smoked per day: 1 Years cigarettes smoked: 50 Quit status (tobacco): considering quitting Second hand smoke exposure: No Vitals/I&O/Wt Last Vital Signs Temp 98.1 F 02/22/20 15:35 Pulse 55 L 02/22/20 15:35 Resp 18 02/22/20 15:35 BP 156/71 02/22/20 15:35 Pulse Ox 95 02/22/20 15:35 02/22/20 02/22/20 02/22/20 06:59 14:59 22:59 Intake Total 1969.417 / 1969. Output Total 970 / 5535 350 / 350 Balance -970 / -3635 1969.417 / 1969.417 -350 / 1620.417 Physical Exam Narrative: EXAM NARRATIVE: Patient is conscious alert oriented X3 BMI 27 Head and neck examination PERRLA no masses no cervical lymphadenopathy no jaundice Abdomen nontender step mildly at the incision sites nondistended soft no organomegaly guarding or rigidity/no signs of peritonitis Left upper quadrant drain in place with serosanguineous output Extremities no cyanosis no clubbing no edema Urinary Catheter Management^: Macario: Cath Placed During This Visit: yes, but has since been removed by the nurse Reason for Continuing Indwelling Catheter: Required Immobilization for Trauma or Surgery or Anesthesia Urinary Catheter Date of Insertion: 02/21/20 Urinary Catheter Time of Insertion: 10:00 Date Urinary Catheter Removed: 02/22/20 Time Urinary Catheter Discontinued: 06:06 Hospital Course Discharge Summary: This is a pleasant 64 years old gentleman undergone laparoscopic Heller myotomy and Zachariah fundoplication with intraoperative EGD. Undergone an upper GI study today postop and showed contrast flowing from the esophagus to the stomach yet there is some narrowing appreciated likely due to postoperative edema and surgical dissection. Yet in comparison to the preop study definitely there is much improvement. Patient tolerating well p.o. intake with good urine output and pain is under control. Continues to have stable vital signs. Appropriate education and training was given to the patient spouse with regard to drain care, print out of clear liquid diet and full liquid was given to the patient as well. SSS Data Data Completed and Pending: Completed Studies During Hospitalization Category Date Time Status [place] upper GI gastr ografin 50007 Rout ine Exams 02/22/20 08:00 Completed XR chest 1V candace ble 27662 Routine Exams 02/21/20 06:28 Completed Pending at discharge Category Date Time Status ES surgery / GI i mages Routine Exams 02/21/20 09:36 Ordered Basic Metabolic P latricia AM LABS Lab 02/23/20 04:00 Ordered Basic Metabolic P latricia AM LABS Lab 02/24/20 04:00 Ordered Hemoglobin and He matocrit AM LABS Lab 02/23/20 04:00 Ordered Hemoglobin and He matocrit AM LABS Lab 02/24/20 04:00 Ordered Procedures Performed: [address] [address] Fluoroscopy Report Signed with Addenda Patient: Cleveland Ash #: [id number] : 5Acct#:[id number] Age/Sex: 64 / MADM Date: 02/21/20 Loc: [facility]/Bed: [facility] Attending Dr: Aneesh Renteria MD Ordering Provider/Ordering MD: Aneesh Renteria MD Date of Service: 02/22/20 Procedure(s): FL upper GI gastrografin 28479 Accession Number(s): [id number] Report Number: [id number] ADDENDUM WS: [id number] Addendum report: Prior Gastrografin upper GI from 02/20/2020 is reviewed and compared to the the exam performed on 02/22/2020. There is some contrast spillage into the stomach on today's upper GI exam as compared to almost complete obstruction of the GE junction on the prior study. Addendum Dictated By: Joce Oliva DO Addendum Signed By: Mg Mancuso Date/Time:02/22/20 1001 Addendum Cosigned By: ADDENDUM FL/FL upper GI gastrografin 25087 IMPRESSION: 1. GE junction obstruction shows improvement on today's study as compared to the prior exam. These results were discussed by phone with Dr. Renteria, the attending surgeon at 9:30 AM 02/22/2020. Addendum Dictated By: Joce Oliva DO Addendum Signed By: Mg Mancuso Date/Time:02/22/20 1005 Addendum Cosigned By: WS: [id number] 02/22/2020 9:15 AM Exam: [place] upper GI gastrografin [id number] Date/Time of Exam: 02/22/2020 8:00 AM Reason For Exam: Status post laparoscopic Heller myotomy and Zachariah fundoplication Fluoroscopy Time: 2.9 Gastrografin upper GI is performed. Swallowing function at the level of the oropharynx was normal. The esophagus is dilated with retained debris. There is spasm of the esophagus with significant smooth stricture at the GE junction. A small amount of barium spills into the stomach and courses through the small bowel without obstruction. There is significant retention of Gastrografin in the esophagus. A gastrotomy tube is noted in the stomach. Pneumoperitoneum noted secondary to recent abdominal surgery. FL/FL upper GI gastrografin 94202 IMPRESSION: 1. Relatively high-grade smooth stricture at the GE junction. Some contrast spills into the stomach and flows through the small bowel without obstruction. 2. Significant amount retained contrast in the esophagus. The esophagus is dilated with tertiary spasm. 3. No abnormal extravasation of contrast outside the confines of the GI tract. Diagnoses at Discharge Discharge Diagnosis (1) Achalasia of cardia: Status: Resolved Discharge Plan Discharge Patient Disposition: Home Condition: Stable Prescriptions: [place] 5-325 mg tablet 1 tab PO Q6H PRN (Reason: pain) Qty: 28 RF: 0 Continued multivitamin Tablet 1 tab PO QAM RF: 0 gabapentin 300 mg capsule 300 mg PO TID Qty: 90 RF: 3 clonazepam [Klonopin] 1 mg tablet 1 mg PO .QHS PRN (Reason: anxiety) Qty: 30 RF: 3 risperidone [Risperdal] 2 mg tablet 2 mg PO .bedtime Qty: 60 RF: 3 trazodone 100 mg tablet 200 mg PO .QHS PRN (Reason: sleep) Qty: 30 RF: 3 sertraline [Zoloft] 50 mg tablet 50 mg PO .morning Qty: 30 RF: 3 Discharge Orders: Discharge Order (Routine); Ordered 02/22/20 Ordered By: Aneesh Renteria Discharge Diet: As Directed Discharge Activity: Limit activity as instructed Activity Restrictions/Additional Instructions: 1. Patient can shower after 48 hours from surgery 2. Remove Band-Aids tomorrow, drain teaching and education 3. Up and walking as tolerated 4. Do lift more than 5 pounds first 2 weeks after surgery and not more than 25 pounds 6 to 8 weeks after surgery. 5. Do not operate heavy machinery or drive while using pain medications. 6.Contact the office or return to the ER for worsening nausea vomiting fevers or chills, or noticing any redness around incision sites or discharge. 7. Drain teaching and education 8. Patient can shower with precautions towards the drain 9. Please contact the office for any concerns or questions Attestations Medical Necessity Statement*: Patient was kept in observation status to make sure he is tolerating well p.o. intake. Time Spent in Patient Care*: greater than 30 min Time Spent in Smoking Cessation: Time spent discussing smoking cessation with patient: more than 10 minutes Specific Discharge Activities: Specific discharge activities: educating patient and educating and/or supporting family/caregiver Status at Discharge: Cognitive status at discharge: cognitively intact , Behavioral status at discharge: cooperative , Functional status at discharge: independent ambulation Overall status at discharge: patient is progressing back to baseline Quality Metrics Clinical Quality Measures: During this hospital stay, did patient experience: None Coding Level of Care Code Acute Certified Peer Specialist for Sanjeev Pena Diagnoses Achalasia of cardia K22.0
--- NOTE | 2020-02-22 17:04 | PC.NURSE ---
teaching done on COLLIN drain with patient's . patient's iv removed. patient and given discharge instructions and verbalized understanding of instructions. patient provided with teaching material on Full liquid and Clear liquid diet.
--- NOTE | 2020-02-22 17:22 | PC.NURSE ---
Patient taken to private vehicle via wheelchair.
--- NOTE | 2020-02-22 18:08 | PC.RESP ---
Smoking Cessation information sent to patient.
== END 2020-02-22 17:24 | disposition home or self-care (01) | DRG 328 ==
LOC: MEDSURG 08:51
PROVIDERS: Admitting Provider Surgery; PCP Family Medicine; Visit Provider Surgery
PROC: 0D844ZZ Division of Esophagogastric Junction, Percutaneous Endoscopic Approach (ICD-10-PCS; CPT 43279; principal; 2020-02-21 08:50)
PROC: 0DJ08ZZ Inspection of Upper Intestinal Tract, Via Natural or Artificial Opening Endoscopic (ICD-10-PCS; CPT 43235; 2020-02-21 08:50)
DX: K22.0 Achalasia of cardia (principal); F10.21 Alcohol dependence, in remission; F43.12 Post-traumatic stress disorder, chronic; F17.210 Nicotine dependence, cigarettes, uncomplicated; F41.1 Generalized anxiety disorder; G47.00 Insomnia, unspecified; G30.9 Alzheimer's disease, unspecified; F02.80 Dementia in other diseases classified elsewhere, unspecified severity, without behavioral disturbance, psychotic disturbance, mood disturbance, and anxiety; F25.1 Schizoaffective disorder, depressive type
CPT/HCPCS: 12345; 43235; 51702; 71045; 74240; 80048; 85014; 85018; 96365; 96372; 96374; 96375; C9113; C9290; J0131; J0330; J0690; J1644; J2250; J2270; J2405; J2704; J2710; J3010; J3490; J7030; Q9963

== ENCOUNTER 2020-03-03 10:15 | Emergency (ER) | payer MEDICARE, MEDICAID, SELFPAY ==
[2020-03-03 10:18] VITALS: BP 150/73; PULSE 65; RESP 18; TEMP 36.3; O2SAT 97; BMI 27.1
--- NOTE | 2020-03-03 10:37 | CTR_ITS ---
PROCEDURE INFORMATION: Exam: CT Abdomen And Pelvis With Contrast Exam date and time: 03/03/2020 11:09 AM Age: 64 years old Clinical indication: Abdominal pain; Prior surgery; Surgery type: Osiel drain; Additional info: Abd pain TECHNIQUE: Imaging protocol: Computed tomography of the abdomen and pelvis with intravenous contrast. Radiation optimization: All CT scans at this facility use at least one of these dose optimization techniques: automated exposure control; mA and/or kV adjustment per patient size (includes targeted exams where dose is matched to clinical indication); or iterative reconstruction. Contrast material: OMNI 300; Contrast volume: 95 ml; Contrast route: INTRAVENOUS (IV); COMPARISON: CR [place] upper GI gastrografin [id number] 02/22/2020 8:47 AM RADIATION DOSE METRICS: Total DLP (mGy-cm): 910.55 FINDINGS: Tubes, catheters and devices: And a percutaneous surgical drain is present in the left upper quadrant. Lungs: There is mild atelectasis in the right lung base. Mediastinal space: There is mild dilatation of fluid-filled distal esophagus. Liver: There is a 3.3 cm benign hemangioma in the right lobe of the liver. Gallbladder and bile ducts: Normal. No calcified stones. No ductal dilation. Pancreas: Normal. No ductal dilation. Spleen: There is a 5.4 cm region of low density in the medial aspect of the spleen with mild infiltration of the surrounding fat. This may be due to splenic infarct. Adrenal glands: Normal. No mass. Kidneys and ureters: Normal. No hydronephrosis. Stomach and bowel: There is sigmoid diverticulosis but no evidence of acute diverticulitis. There is no bowel obstruction or dilatation. Appendix: No evidence of appendicitis. Intraperitoneal space: Unremarkable. No free air. No significant fluid collection. Vasculature: The aorta is calcified but there is no aneurysm. Lymph nodes: Unremarkable. No enlarged lymph nodes. Urinary bladder: Unremarkable as visualized. Reproductive: Unremarkable as visualized. Bones/joints: Degenerative changes are present in the spine. Soft tissues: Unremarkable. CT/CT abdomen pelvis w con* [id number] IMPRESSION: 1. There is a region of low density in the medial aspect of the spleen consistent with recent splenic infarct. 2. Percutaneous drain in the left upper quadrant. 3. Mild dilatation of fluid-filled distal esophagus. Radiation Dose CTDIVOL = (mGy): DLP = 910.55 (mGy-cm)
--- NOTE | 2020-03-03 10:37 | ECG_ITS ---
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 Measurements Intervals Mutual Rate: 62 P: 44 CO: 131 QRS: 50 QRSD: 100 T: 56 QT: 391 QTc: 399 Interpretive Statements SINUS RHYTHM Compared to ECG 04/09/2017 11:49:31 No significant changes Electronically Signed On 03-03-2020 11:37:10 COAT PADDER by Carly De La Rosa M.D. [id number]
--- NOTE | 2020-03-03 10:47 | ED_ITS ---
HPI - Abdominal Pain General: Chief Complaint: Abdominal Pain Stated Complaint: drain tube issue Time Seen by Provider: 03/03/20 10:18 History of Present Illness: HPI narrative: 64-year-old male presents to the emergency room with complaints of pain at the site of the COLLIN tube. On 1026 patient had esophageal myotomy due to achalasia cardia. He states initially he had minimal drainage from the drain and then it increased and then decreased again. Still has serosanguineous drainage he has just a few mils in the drainage bag now. He denies any fever sweats or chills he was concerned about some redness about to the entrance site of the tube. He still has navin in the abdominal wall from the laparoscopic procedure. Denies any difficulty with swallowing denies any hematemesis or coffee-ground emesis. No melena or hematochezia. MD elicited complaint: abdominal pain Pertinent past history: other (Recent esophageal myotomy) Onset (ago): hour(s) Pain Consistency: constant Location: Other (Abdominal wall) Severity: moderate Quality: cramping Radiation: none Exacerbating factors: other (Palpation) Relieving factors: nothing Associated Symptoms: Denies belching, bloating, change in bowel habits, change in stool character, chills, coffee ground emesis, constipation, GI cramping, diarrhea, dyspepsia, dysuria, excessive flatus, fever(s), heartburn, hematochezia, hematuria, hematemesis, fecal incontinence, loose stools, melena, nausea, poor appetite, syncope and vomiting Review of Systems Const: Denies: fever(s) or chills ENMT: Denies: throat pain, ear or mastoid pain, nasal discharge or nasal congestion Card: Denies: syncope Resp: Denies: dyspnea, productive cough or non-productive cough GI: Denies: nausea, vomiting, hematemesis, coffee ground emesis, heartburn, diarrhea, constipation, bloating, GI cramping, belching, excessive flatus, fecal incontinence, change in bowel habits, change in stool character, hematochezia or melena : Denies: dysuria or hematuria Skin/Breast: Denies: rash or pruritus PFS ED PFSH: Medical History Alcohol use disorder, moderate, in early remission Chronic post-traumatic stress disorder Cigarette nicotine dependence Generalized anxiety disorder Insomnia Major neurocognitive disorder due to probable Alzheimer's disease, without behavioral disturbance Schizoaffective disorder, depressive type without good prognostic features Surgical History History of esophagogastroduodenoscopy (EGD) (~2018) BOTOX INJECTION Family History Denies family history of Anesthesia complication Bleeding disorder Social History Smoking and tobacco status: current every day smoker cigarettes Packs smoked per day: 1 Years cigarettes smoked: 50 Quit status (tobacco): considering quitting Second hand smoke exposure: No Physical Exam Const: COMMON NORMALS: no acute distress GENERAL APPEARANCE: cooperative and comfortable ORIENTATION/CONSCIOUSNESS: Yes awake, Yes oriented to person, Yes oriented to place and Yes oriented to time HENMT: COMMON NORMALS: normocephalic, atraumatic and hearing grossly normal bilaterally HEAD & SCALP: normocephalic and atraumatic Neck/C-Spine: COMMON NORMALS: no JVD Resp: COMMON NORMALS: normal respiratory effort, No retractions, No use of accessory muscles and clear to auscultation bilaterally AUSCULTATION: clear to auscultation bilaterally Cardio: COMMON NORMALS: no JVD, regular rate, regular rhythm and No murmurs present (Cardio) RATE: regular rate RHYTHM: regular rhythm GI: COMMON NORMALS: Soft to palpation and No hepatosplenomegaly present AUSCULTATION: Yes normoactive bowel sounds PALPATION: Yes Soft to palpation, Yes Tenderness to palpation present (GI) (Periincisional tenderness no guarding or rebound), No Guarding due to palpation present (GI) and Yes No hepatosplenomegaly present Extremity: COMMON NORMALS: normal to inspection, capillary refill normal, no clubbing, cyanosis or edema, no calf tenderness and no pedal edema Neuro: SENSORIUM/ORIENTATION: Yes oriented to person, Yes oriented to place and Yes oriented to time Skin: COMMON NORMALS: no rashes or lesions noted NARRATIVE SKIN EXAM: Localized erythema with no abscess no subcutaneous fluctuance around the site of the the drain. There is no induration. GENERAL SKIN EXAM: no rashes or lesions noted Course Vital Signs: Vital signs: Vital Signs Temperature 97.3 F L 03/03/20 10:18 Pulse Rate 83 03/03/20 14:24 Respiratory Rate 18 03/03/20 14:24 Blood Pressure 124/78 03/03/20 14:24 Pulse Oximetry 100 03/03/20 14:24 MDM - Abdominal Pain MDM Narrative: Medical decision making narrative: Reviewed findings with patient including CT. At this point there is no sign of the drain is not working properly there is no fluid accumulation I do not believe it is acutely infected there is some minor irritation there that may likely resolve with no intervention we will have him use some topical antibiotic ointment and follow-up with Dr. Napoles later this week. Resume diet as ordered by Dr. Renteria. Did have a follow-up with him in 4 days return to the ER see Dr. Napoles sooner if if he has further problems. His EKG did show a little bit of early repolarization Dr. Valdez reviewed and serial troponins were negative x2 he is not having any chest pain I do not have an old EKG to compare to but I do not think overall that represents anything significant Dr. Valdez agreed. Lab Data: Attestation: I reviewed the patient's lab results. Labs: Lab Results 03/03/20 03/03/20 03/03/20 Range/Units 11:02 11:02 11:02 WBC 9.0 (4.0-10.0) 10^3/ uL RBC 4.61 (4.1-5.3) 10^6/u L Hgb 14.5 (11.7-16.6) g/dL Hct 43.4 (42.0-52.0) % MCV 94.1 H (80-94) fL MCH 31.5 (28.0-34.0) pg MCHC 33.4 (30.0-36.0) g/dL RDW 12.7 (12.1-15.1) % Plt Count 372 (130-400) 10^3/c mm MPV 10.6 H (7.4-10.4) fL Neut % (Auto) 71.4 % Lymph % (Auto) 19.9 % [place] % (Auto) 7.6 % Eos % (Auto) 0.6 % Baso % (Auto) 0.2 % Neut # (Auto) 6.44 (1.8-7.7) 10^3/u L Lymph # (Auto) 1.8 (0.8-4.8) 10^3/u L [place] # (Auto) 0.7 (0.2-0.9) 10^3/u L Eos # (Auto) 0.1 (0.0-0.8) 10^3/u L Baso # (Auto) 0.0 (0.0-0.1) 10^3/u L Nucleated RBC % (a uto) 0 % Nucleated RBCs # 0.0 /100WBC Sodium 136 (136-145) mmol/L Potassium 4.1 (3.5-5.1) mmol/L Chloride 99 (98-107) mmol/L Carbon Dioxide 26 (22-29) mmol/L Anion Gap 15.1 (5-19) BUN 10 (8-23) mg/dL Creatinine 0.7 (0.7-1.2) mg/dL GFR Calculation 113.5 (90-130) mL/min Glucose 101 (65-115) mg/dL Calculated Osmolal ity 281 L (285-295) mOsm/k g Calcium 9.7 (8.5-10.5) mg/dL Total Bilirubin 0.4 (0.15-1.2) mg/dL AST 18 (0-40) U/L ALT 13 (0-41) U/L Alkaline Phosphata se 91 (40-130) IU/L Troponin T Baselin e 6 (0-15) ng/L Troponin T 120 Min kelli (0-15) ng/L Delta Troponin T (0-10) ABS# Total Protein 6.8 (6.6-8.7) g/dL Albumin 3.9 (3.5-5.2) g/dL Globulin 2.9 (1.3-4.6) g/dL Lipase 20 (13-60) U/L Urine Color (Yellow) Urine Appearance (CLEAR) Urine pH (5-7) Ur Specific Gravit y (1.005-1.030) Urine Protein (Negative) Urine Glucose (UA) (Normal) Urine Ketones (Negative) Urine Blood (Negative) Urine Nitrate (Negative) Urine Bilirubin (Negative) Urine Urobilinogen (Negative) mg/dL Ur Leukocyte Tiffany ase (Negative) Urine RBC (0-2) /hpf Urine WBC (0-5) /hpf Ur Squamous Epith Cells (0-5) /hpf Amorphous Sediment Urine Bacteria (NONE) /hpf 03/03/20 03/03/20 Range/Units 11:10 13:08 WBC (4.0-10.0) 10^3/ uL RBC (4.1-5.3) 10^6/u L Hgb (11.7-16.6) g/dL Hct (42.0-52.0) % MCV (80-94) fL MCH (28.0-34.0) pg MCHC (30.0-36.0) g/dL RDW (12.1-15.1) % Plt Count (130-400) 10^3/c mm MPV (7.4-10.4) fL Neut % (Auto) % Lymph % (Auto) % [place] % (Auto) % Eos % (Auto) % Baso % (Auto) % Neut # (Auto) (1.8-7.7) 10^3/u L Lymph # (Auto) (0.8-4.8) 10^3/u L [place] # (Auto) (0.2-0.9) 10^3/u L Eos # (Auto) (0.0-0.8) 10^3/u L Baso # (Auto) (0.0-0.1) 10^3/u L Nucleated RBC % (a uto) % Nucleated RBCs # /100WBC Sodium (136-145) mmol/L Potassium (3.5-5.1) mmol/L Chloride (98-107) mmol/L Carbon Dioxide (22-29) mmol/L Anion Gap (5-19) BUN (8-23) mg/dL Creatinine (0.7-1.2) mg/dL GFR Calculation (90-130) mL/min Glucose (65-115) mg/dL Calculated Osmolal ity (285-295) mOsm/k g Calcium (8.5-10.5) mg/dL Total Bilirubin (0.15-1.2) mg/dL AST (0-40) U/L ALT (0-41) U/L Alkaline Phosphata se (40-130) IU/L Troponin T Baselin e (0-15) ng/L Troponin T 120 Min kelli 6.14 (0-15) ng/L Delta Troponin T 0.14 (0-10) ABS# Total Protein (6.6-8.7) g/dL Albumin (3.5-5.2) g/dL Globulin (1.3-4.6) g/dL Lipase (13-60) U/L Urine Color Yellow (Yellow) Urine Appearance Clear (CLEAR) Urine pH 7 (5-7) Ur Specific Gravit y 1.005 (1.005-1.030) Urine Protein Neg (Negative) Urine Glucose (UA) Norm (Normal) Urine Ketones Negative (Negative) Urine Blood Trace H (Negative) Urine Nitrate Negative (Negative) Urine Bilirubin Neg (Negative) Urine Urobilinogen Norm (Negative) mg/dL Ur Leukocyte Tiffany ase Negative (Negative) Urine RBC 15-25 H (0-2) /hpf Urine WBC 0-4 H (0-5) /hpf Ur Squamous Epith Cells 0-4 H (0-5) /hpf Amorphous Sediment Not Reportable Urine Bacteria Trace (NONE) /hpf Discharge Plan Discharge Patient Disposition: Home Clinical Impression: Achalasia Condition: Stable Prescriptions: New mupirocin 2 % ointment 1 applic TOPICAL BID Qty: 22 RF: 0 No Action multivitamin Tablet 1 tab PO QAM RF: 0 gabapentin 300 mg capsule 300 mg PO TID Qty: 90 RF: 3 Klonopin 1 mg tablet 1 mg PO BEDTIME PRN (Reason: anxiety) RF: 0 Risperdal 2 mg tablet 2 mg PO BEDTIME RF: 0 trazodone 100 mg tablet 200 mg PO BEDTIME PRN (Reason: sleep) RF: 0 Zoloft 50 mg tablet 50 mg PO QAM RF: 0 Discharge Orders: Discharge Order (Routine); Ordered 03/03/20 Ordered By: Artem Cortez Referrals: Benny Friedman MD [Primary Care Provider] - Discharge Diet: Usual diet Discharge Activity: Increase activity as tolerated Activity Restrictions/Additional Instructions: Follow up with Dr. Bender Discharge Date/Time: 03/03/20 14:26 Coding Level of Care Code ED Composite Bond Worker for Chg Fwd Exam Comprehensive
[2020-03-03 11:20] LABS: Basophils % 0.2 %; Eosinophils # 0.1 10^3/uL (0.0-0.8); Eosinophils % 0.6 %; Hematocrit 43.4 % (42.0-52.0); Hemoglobin 14.5 g/dL (11.7-16.6); Lymphocytes # 1.8 10^3/uL (0.8-4.8); Lymphocytes % 19.9 %; Mean Corpuscular HGB Conc 33.4 g/dL (30.0-36.0); Mean Corpuscular Hemoglobin 31.5 pg (28.0-34.0); Mean Corpuscular Volume 94.1 fL (80-94); Mean Platelet Volume 10.6 fL (7.4-10.4); Monocytes # 0.7 10^3/uL (0.2-0.9); Monocytes % 7.6 %; Neutrophils # 6.44 10^3/uL (1.8-7.7); Neutrophils % 71.4 %; Nucleated Red Blood Cells % 0 %; Platelet Count 372 10^3/cmm (130-400); Red Blood Count 4.61 10^6/uL (4.1-5.3); Red Cell Distribution Width 12.7 % (12.1-15.1)
[2020-03-03 11:26] LABS: Add Urine Microscopic? YES; Bilirubin Urine Neg (Negative); Blood Urine Trace (Negative); Glucose Urine UA Norm (Normal); Ketones Urine Negative (Negative); Leukocyte Esterase Urine Negative (Negative); Nitrate Urine Negative (Negative); Protein Urine Neg (Negative); Specific Gravity, Urine 1.005 (1.005-1.030); Urine Appearance Clear (CLEAR); Urine Color Yellow (Yellow); Urobilinogen Urine Norm (Negative); pH Urine 7 (5-7)
[2020-03-03 11:28] LABS: Bacteria Urine TRACE /hpf; RBC Urine 15-25 /hpf (0-2); Squamous Epithelial Cell Urine 0-4 /hpf (0-5); WBC Urine 0-4 /hpf (0-5)
[2020-03-03 11:31] LABS: Add Urine Culture? No
[2020-03-03 11:44] LABS: Alanine Aminotransferase 13 U/L (0-41); Albumin Level 3.9 g/dL (3.5-5.2); Alkaline Phosphatase 91 IU/L (40-130); Anion Gap 15.1 (5-19); Aspartate Amino Transferase 18 U/L (0-40); Blood Urea Nitrogen 10 mg/dL (8-23); Calcium 9.7 mg/dL (8.5-10.5); Carbon Dioxide 26 mmol/L (22-29); Chloride 99 mmol/L (98-107); Globulin 2.9 g/dL (1.3-4.6); Glomerular Filtration Rate 113.5 mL/min (90-130); Glucose 101 mg/dL (65-115); Lipase 20 U/L (13-60); Osmolality Calculated 281 mOsm/kg (285-295); Potassium 4.1 mmol/L (3.5-5.1); Sodium 136 mmol/L (136-145); Total Bilirubin 0.4 mg/dL (0.15-1.2); Total Protein 6.8 g/dL (6.6-8.7)
[2020-03-03 11:47] LABS: Troponin(5th) Baseline 6 ng/L (0-15)
[2020-03-03] MEDS: iohexol 300 mg/mL 100 mL Btl IV (12:17)
--- NOTE | 2020-03-03 12:37 | ECG_ITS ---
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 Measurements Intervals [place] Rate: 50 P: 61 FL: 182 QRS: 48 QRSD: 105 T: 52 QT: 435 QTc: 399 Interpretive Statements SINUS BRADYCARDIA Compared to ECG 03/03/2020 10:51:01 Sinus rhythm no longer present Electronically Signed On 03-04-2020 9:30:52 STONE [employer]ER by Carly De La Rosa M.D. [id number]
[2020-03-03 13:42] LABS: Troponin 5 2HR 6.14 ng/L (0-15); Troponin 5 2HR Delta 0.14 ABS# (0-10)
[2020-03-03 14:24] VITALS: BP 124/78; PULSE 83; RESP 18; O2SAT 100
== END 2020-03-03 14:26 | disposition home or self-care (01) ==
PROVIDERS: Emergency Provider Family Medicine; PCP Family Medicine
DX: K22.0 Achalasia of cardia (principal); F17.210 Nicotine dependence, cigarettes, uncomplicated
CPT/HCPCS: 12345; 74177; 80053; 81001; 83690; 84484; 85025; 93005; 99283; Q9967

== ENCOUNTER → 2020-03-06 07:51 | Outpatient (BNVA) | payer MEDICARE, MEDICAID, SELFPAY | PROVIDERS: PCP Family Medicine; Visit Provider Nurse Practitioner Psychiatric/Mental Health | DX: F25.1 Schizoaffective disorder, depressive type (principal); F41.1 Generalized anxiety disorder; F43.12 Post-traumatic stress disorder, chronic; F01.50 Vascular dementia, unspecified severity, without behavioral disturbance, psychotic disturbance, mood disturbance, and anxiety; F10.21 Alcohol dependence, in remission; F17.210 Nicotine dependence, cigarettes, uncomplicated | CPT/HCPCS: 99214 ==

== ENCOUNTER → 2020-04-05 08:28 | Outpatient (BNVA) | payer MEDICARE, SELFPAY | PROVIDERS: PCP Family Medicine; Visit Provider Nurse Practitioner Psychiatric/Mental Health | DX: F25.1 Schizoaffective disorder, depressive type (principal); F41.1 Generalized anxiety disorder; F01.50 Vascular dementia, unspecified severity, without behavioral disturbance, psychotic disturbance, mood disturbance, and anxiety; F17.210 Nicotine dependence, cigarettes, uncomplicated; F10.21 Alcohol dependence, in remission; F43.12 Post-traumatic stress disorder, chronic | CPT/HCPCS: 99213 ==

== ENCOUNTER 2020-04-25 15:29 | Outpatient (CLI) | payer MEDICARE, MEDICAID, SELFPAY ==
--- NOTE | 2020-04-25 15:42 | XR_ITS ---
WS: [id number] Exam: XR lumbar spine min 4V [id number] Date/Time of Exam: 04/25/2020 3:42 PM Reason For Exam: RIGHT SCIATIC NERVE PAIN Comparison 08/06/2017. No fracture or dislocation. There is spondylosis. Disc spaces are relatively well maintained. No inst ability or subluxation noted on flexion or extension views. Facet DJD at all levels. XR/XR lumbar spine min 4V 89148 IMPRESSION: 1. Spondylosis and facet DJD. 2. No fracture or malalignment. 3. No instability or subluxation noted on flexion or extension views.:
== END 2020-04-25 15:30 | disposition home or self-care (01) ==
PROVIDERS: PCP Family Medicine
DX: M54.31 Sciatica, right side (principal); M47.816 Spondylosis without myelopathy or radiculopathy, lumbar region
CPT/HCPCS: 72114

== ENCOUNTER → 2020-05-28 08:24 | Outpatient (BNVA) | payer MEDICARE, SELFPAY | PROVIDERS: PCP Family Medicine; Visit Provider Nurse Practitioner Psychiatric/Mental Health | DX: F25.1 Schizoaffective disorder, depressive type (principal); F41.1 Generalized anxiety disorder; F01.50 Vascular dementia, unspecified severity, without behavioral disturbance, psychotic disturbance, mood disturbance, and anxiety; F17.210 Nicotine dependence, cigarettes, uncomplicated; F10.21 Alcohol dependence, in remission; F43.12 Post-traumatic stress disorder, chronic | CPT/HCPCS: 99214 ==

== ENCOUNTER → 2020-07-30 08:15 | Outpatient (BNVA) | payer MEDICARE, MEDICAID, SELFPAY | PROVIDERS: PCP Family Medicine; Visit Provider Nurse Practitioner Psychiatric/Mental Health | DX: F25.1 Schizoaffective disorder, depressive type (principal); F41.1 Generalized anxiety disorder; F01.50 Vascular dementia, unspecified severity, without behavioral disturbance, psychotic disturbance, mood disturbance, and anxiety; F17.210 Nicotine dependence, cigarettes, uncomplicated; F10.21 Alcohol dependence, in remission; F43.12 Post-traumatic stress disorder, chronic | CPT/HCPCS: 99214 ==

== ENCOUNTER 2020-08-14 07:23 | Outpatient (CLI) | payer MEDICARE, MEDICAID, SELFPAY ==
[2020-08-14 08:25] LABS: Blood Urea Nitrogen 10 mg/dL (8-23); Calcium 8.9 mg/dL (8.5-10.5); Carbon Dioxide 27 mmol/L (22-29); Chloride 105 mmol/L (98-107); Chol HDL Ratio 5.52 mg/dL (1.0-5.00); Cholesterol 171 mg/dL (0-200); Glomerular Filtration Rate 113.2 mL/min (90-130); Glucose 109 mg/dL (65-115); HDL Cholesterol 31 mg/dL (60-100); LDL Cholesterol Calculated 91 mg/dL (50-129); LDL HDL Ratio 2.94 RATIO (0.00-3.22); Osmolality Calculated 290 mOsm/kg (285-295); Sodium 140 mmol/L (136-145); Triglycerides 246 mg/dL (0-150)
== END 2020-08-14 07:24 | disposition home or self-care (01) ==
PROVIDERS: PCP Family Medicine
DX: I10 Essential (primary) hypertension (principal); E78.1 Pure hyperglyceridemia
CPT/HCPCS: 36415; 80048; 80061

== ENCOUNTER → 2020-08-28 14:39 | Outpatient (BNVA) | payer MEDICARE, MEDICAID, SELFPAY | PROVIDERS: PCP Family Medicine; Visit Provider Counselor Mental Health | DX: F43.12 Post-traumatic stress disorder, chronic (principal); F41.1 Generalized anxiety disorder; F25.1 Schizoaffective disorder, depressive type | CPT/HCPCS: 90834 ==

== ENCOUNTER → 2020-09-11 08:33 | Outpatient (BNVA) | payer MEDICARE, SELFPAY | PROVIDERS: PCP Family Medicine; Visit Provider Nurse Practitioner Psychiatric/Mental Health | DX: F41.1 Generalized anxiety disorder (principal); F25.1 Schizoaffective disorder, depressive type; F43.12 Post-traumatic stress disorder, chronic; F17.210 Nicotine dependence, cigarettes, uncomplicated; F10.21 Alcohol dependence, in remission | CPT/HCPCS: 99214 ==

== ENCOUNTER → 2020-10-30 12:48 | Outpatient (BNVA) | payer MEDICARE, MEDICAID, SELFPAY | PROVIDERS: PCP Family Medicine; Visit Provider Nurse Practitioner Psychiatric/Mental Health | DX: F41.1 Generalized anxiety disorder (principal); F25.1 Schizoaffective disorder, depressive type; F43.12 Post-traumatic stress disorder, chronic; F17.210 Nicotine dependence, cigarettes, uncomplicated; F12.20 Cannabis dependence, uncomplicated; F10.21 Alcohol dependence, in remission | CPT/HCPCS: 99215 ==

== ENCOUNTER → 2020-12-04 13:11 | Outpatient (BNVA) | payer MEDICARE, MEDICAID, SELFPAY | PROVIDERS: PCP Family Medicine; Visit Provider Nurse Practitioner Psychiatric/Mental Health | DX: F10.21 Alcohol dependence, in remission (principal); F41.1 Generalized anxiety disorder; F12.20 Cannabis dependence, uncomplicated; F17.210 Nicotine dependence, cigarettes, uncomplicated | CPT/HCPCS: 99214 ==

== ENCOUNTER → 2021-01-31 12:56 | Outpatient (BNVA) | payer MEDICARE, MEDICAID, SELFPAY | PROVIDERS: PCP Family Medicine; Visit Provider Nurse Practitioner Psychiatric/Mental Health | DX: F41.1 Generalized anxiety disorder (principal); F25.1 Schizoaffective disorder, depressive type; F43.12 Post-traumatic stress disorder, chronic; F12.20 Cannabis dependence, uncomplicated; F10.21 Alcohol dependence, in remission; F17.210 Nicotine dependence, cigarettes, uncomplicated | CPT/HCPCS: 99214 ==

== ENCOUNTER → 2021-02-19 10:59 | Outpatient (BNVA) | payer MEDICARE, MEDICAID, SELFPAY | PROVIDERS: PCP Nurse Practitioner Family; Visit Provider Specialist | DX: G31.84 Mild cognitive impairment of uncertain or unknown etiology (principal); F25.1 Schizoaffective disorder, depressive type | CPT/HCPCS: 99204 ==

== ENCOUNTER → 2021-03-06 10:31 | Outpatient (BNVA) | payer MEDICARE, MEDICAID, SELFPAY | PROVIDERS: PCP Nurse Practitioner Family; Visit Provider Urology | DX: Z12.5 Encounter for screening for malignant neoplasm of prostate (principal); R35.1 Nocturia; N52.9 Male erectile dysfunction, unspecified; R35.0 Frequency of micturition | CPT/HCPCS: 81003; G0103 ==

== ENCOUNTER → 2021-03-14 09:21 | Outpatient (BNVA) | payer MEDICARE, MEDICAID, SELFPAY | PROVIDERS: PCP Family Medicine; Visit Provider Nurse Practitioner Psychiatric/Mental Health | DX: F25.1 Schizoaffective disorder, depressive type (principal); F41.1 Generalized anxiety disorder; F43.12 Post-traumatic stress disorder, chronic; F17.210 Nicotine dependence, cigarettes, uncomplicated; F12.20 Cannabis dependence, uncomplicated; F10.21 Alcohol dependence, in remission | CPT/HCPCS: 99214 ==

== ENCOUNTER → 2021-04-23 10:17 | Outpatient (BNVA) | payer MEDICARE, MEDICAID, SELFPAY | PROVIDERS: PCP Family Medicine; Visit Provider Nurse Practitioner Psychiatric/Mental Health | DX: F41.1 Generalized anxiety disorder (principal); F17.210 Nicotine dependence, cigarettes, uncomplicated; F25.1 Schizoaffective disorder, depressive type; Z79.899 Other long term (current) drug therapy; F43.12 Post-traumatic stress disorder, chronic; F10.21 Alcohol dependence, in remission | CPT/HCPCS: 99214 ==

== ENCOUNTER → 2021-08-28 12:08 | Outpatient (BNVA) | payer MEDICARE, MEDICAID, SELFPAY | PROVIDERS: PCP Family Medicine; Visit Provider Specialist | DX: G31.84 Mild cognitive impairment of uncertain or unknown etiology (principal); R42 Dizziness and giddiness; F41.1 Generalized anxiety disorder; F25.1 Schizoaffective disorder, depressive type; Z87.891 Personal history of nicotine dependence | CPT/HCPCS: 99214 ==

== ENCOUNTER → 2021-09-03 14:01 | Outpatient (BNVA) | payer MEDICARE, MEDICAID, SELFPAY | PROVIDERS: PCP Family Medicine; Visit Provider Nurse Practitioner Psychiatric/Mental Health | DX: F25.1 Schizoaffective disorder, depressive type (principal); F43.12 Post-traumatic stress disorder, chronic; F17.210 Nicotine dependence, cigarettes, uncomplicated; Z79.899 Other long term (current) drug therapy; F41.1 Generalized anxiety disorder | CPT/HCPCS: 99214 ==

== ENCOUNTER → 2021-09-20 09:51 | Outpatient (BNVA) | payer MEDICARE, MEDICAID, SELFPAY | PROVIDERS: PCP Family Medicine; Visit Provider Counselor Mental Health | DX: F43.12 Post-traumatic stress disorder, chronic (principal); F41.1 Generalized anxiety disorder; F25.1 Schizoaffective disorder, depressive type | CPT/HCPCS: 90834 ==

== ENCOUNTER → 2022-01-31 09:52 | Outpatient (BNVA) | payer MEDICARE, MEDICAID, OTHER, SELFPAY | PROVIDERS: PCP Family Medicine; Visit Provider Nurse Practitioner Psychiatric/Mental Health | DX: Z79.899 Other long term (current) drug therapy (principal); F25.1 Schizoaffective disorder, depressive type; F41.1 Generalized anxiety disorder; F10.21 Alcohol dependence, in remission; F43.12 Post-traumatic stress disorder, chronic; F17.210 Nicotine dependence, cigarettes, uncomplicated | CPT/HCPCS: 80053; 80061; 83036 ==

== ENCOUNTER → 2022-02-04 12:49 | Outpatient (BNVA) | payer MEDICARE, MEDICAID, SELFPAY | PROVIDERS: PCP Family Medicine; Visit Provider Specialist | DX: G31.84 Mild cognitive impairment of uncertain or unknown etiology (principal); F25.1 Schizoaffective disorder, depressive type; F43.12 Post-traumatic stress disorder, chronic | CPT/HCPCS: 96116; 99214 ==

== ENCOUNTER → 2022-07-30 14:25 | Outpatient (BNVA) | payer MEDICARE, MEDICAID, SELFPAY | PROVIDERS: PCP Physician Assistant; Visit Provider Specialist | DX: G31.84 Mild cognitive impairment of uncertain or unknown etiology (principal); F25.1 Schizoaffective disorder, depressive type; F41.1 Generalized anxiety disorder | CPT/HCPCS: 99213 ==

== ENCOUNTER → 2023-04-21 12:55 | Outpatient (BNVA) | payer MEDICARE, OTHER, SELFPAY | PROVIDERS: PCP Physician Assistant; Visit Provider Nurse Practitioner Psychiatric/Mental Health | DX: Z79.899 Other long term (current) drug therapy (principal); F25.1 Schizoaffective disorder, depressive type; F41.1 Generalized anxiety disorder; F43.12 Post-traumatic stress disorder, chronic | CPT/HCPCS: 80053; 80061; 83036 ==

== ENCOUNTER → 2024-09-01 12:03 | Outpatient (BNVA) | payer MEDICARE, OTHER, SELFPAY ==
[2023-05-07 11:42] VITALS: BP 147/90; BMI 26.2
== END ==
PROVIDERS: PCP Physician Assistant; Visit Provider Nurse Practitioner Psychiatric/Mental Health
DX: Z79.899 Other long term (current) drug therapy (principal)
CPT/HCPCS: 80061; 83036